=== PATIENT | female | born 1985 | race Caucasian/White ===

== ENCOUNTER 2017-01-29 19:06 | Emergency (ER) | payer OTHER ==
--- NOTE | ~2017-01-29 | CT4 ---
[facility] A Service [facility] RADIOLOGY TEXT RESULTS PATIENT: KAJAL WHYTE LOCATION: SED : [birth year] UNIT #: [id number] AGE: [address]: Melodie oGldsmith MD SEX: F ORDER DR: [id number] [id number] E MR#: [id number] Acc #: [id number] NAME: KAJAL WHYTE : 1985 SEX: F STUDY DATE/TIME: 01/29/2017 19:35 UNIT: SED ROOM: STUDY DESCRIPTION: CT Abd and Pelv Wo Cont Attending Physician: Melodie Goldsmith M.D. Ordering Physician: Physician Non-Staff Primary Care Physician: Ritu Mcneal A.P.R.N. MEDICAL IMAGING REPORT This report is preliminary unless electronic signature is present. EXAM CT abdomen and pelvis without contrast HISTORY Left flank pain and nausea for [address] examination was performed with one or more of the following radiation dose reduction techniques: automatic exposure control, adjustment of mA and/or kV according to patient size, and iterative reconstruction. FINDINGS CT abdomen and pelvis was performed without contrast. CT ABDOMEN: The liver, gallbladder, spleen, pancreas, kidneys, and adrenal glands are unremarkable. No renal calculi. No hydronephrosis or perinephric stranding. No bowel dilatation. Normal caliber abdominal aorta. No ascites or adenopathy. CT PELVIS: No bladder calculi. No ascites. No inflammatory stranding. The uterus and adnexa are unremarkable. IMPRESSION 1. No acute findings in the abdomen or pelvis. 2. No urinary calculi or obstruction. 3. No bowel dilatation. [facility] A Service [facility] RADIOLOGY TEXT RESULTS PATIENT: KAJAL WHYTE LOCATION: SED : [birth year] UNIT #: [id number] AGE: [address]: Melodie Goldsmith MD SEX: F ORDER DR: Dictated by... Ulises Sanam Maldonado M.D. THIS IS AN ELECTRONICALLY VERIFIED REPORT Ulises Maldonado M.D. at 01/30/2017 9:04 PM THERESA/giovanni TD: 01/30/2017 11:34 JOB #: [id number] MEDICAL IMAGING REPORT Page 1 of 1
[~2017-01-29 19:06] MED LIST: ALBUTEROL17 G1 IH; ALBUTEROL17 GM INH; AMOXICILLIN PO; AMOXIL875 MG PO; ANSAID100 MG PO; AUGMENTIN875 M1 PO; BACTRIM DS TABL1 TA1 PO; BENZONATATE PO; BUSPAR PO; CATAFLAM50 MG PO; CIPRO PO; CIPRO250 MG PO; FLOMAX0.4 M1 PO; FLONASE16 GM; HYCODAN PO; IBUPROFEN PO; IBUPROFEN800 MG PO; LOMOTIL TABLET1 TAB PO; LORTAB 5/500 TA1 TA1 PO; MACRODANTIN PO; MOTRIN600 M1 PO; MOTRIN600 MG PO; NAPROSYN250 M1 PO; NAPROSYN500 MG PO; NASONEX17 GM; NEXPLANON68 MG SQ; NO MEDICATIONS; PEPCID PO; PERCOCET5/325 PO; PHENERGAN PO; PHENERGAN25 M1 PO; PHENERGAN25 MG; PHENERGAN25 MG PO; PREDNISONE5 M1; PRENATAL1 TA1 PO; PRILOSEC; PROMETHAZINE D118 ML; PROZAC PO; PYRIDIUM PO; PYRIDIUM100 MG PO; ROBAXIN 750750 M1 PO; ROBITUSSIN A-C-S1 ML PO; ROBITUSSIN15 MG/5 ML; RONDEX-DM SYRU118 ML PO; TESSALON200 MG PO; TYLENOL #3 PO; ULTRAM PO; VICODIN PO; VOLTAREN75 MG PO; ZOFRAN ODT4 MG PO; ZOFRAN PO; ZOFRANODT PO; [UNRECOGNIZED DRUG - OTHER]
[2017-01-29 19:19] LABS: URINE SOURCE CLEAN CATCH
[2017-01-29 19:21] LABS: URINE APPEARANCE CLEAR; URINE BILIRUBIN NEG (NEG); URINE BLOOD NEG (NEG); URINE COLOR YELLOW; URINE GLUCOSE NEG (NORM); URINE KETONE NEG (NEG); URINE LEUKOCYTE ESTERASE NEG (NEG); URINE NITRATE NEG (NEG); URINE PH 6.5 (5-8); URINE PROTEIN NEG (NEG)
[2017-01-29 19:22] LABS: MICRO INDICATED? NO
[2017-01-29 20:05] LABS: BASOPHIL# 0.1 X10e3 (0-0.3); BASOPHIL% 0.5 % (0-2.5); EOSINOPHIL# 0.1 X10e3 (0-0.7); HEMATOCRIT 37.1 % (35.0-45.0); HEMOGLOBIN 11.4 gm/dL (12.0-16.0); LYMPHOCYTE# 3.1 X10e3 (1.0-3.5); LYMPHOCYTE% 27.6 % (17.0-45.0); MEAN CELL VOLUME 61.9 FL (83-96); MEAN CORPUSCULAR HGB CONC 30.7 g/dL (30-36); MEAN PLATELET VOLUME 9.9 FL (6.5-11.5); MONOCYTE# 0.9 X10e3 (0-1.0); MONOCYTE% 7.9 % (3.0-12.0); PLATELET COUNT 301 X10e3 (140-420); RED BLOOD COUNT 5.99 X10e (3.90-5.30); RED CELL DISTRIBUTION WIDTH 15.1 % (11.0-15.5); WHITE BLOOD COUNT 11.2 X10e3 (4.0-10.5)
[2017-01-29 20:07] LABS: DIFF IND NO
[2017-01-29 20:27] LABS: BLOOD UREA NITROGEN 12 mg/dL (9-23); CALCIUM SERUM 9.1 mg/dL (8.4-10.2); CARBON DIOXIDE 29 mmol/L (22-31); CHLORIDE 106 mmol/L (100-111); CREATININE SERUM 0.5 mg/dL (0.6-1.4); GLOM FILT RATE Estimated ABOVE60 mL/min (>60); GLUCOSE FASTING 89 mg/dL (70-110); POTASSIUM 3.6 mmol/L (3.5-5.1); SODIUM 140 mmol/L (135-145)
== END 2017-01-29 21:09 | disposition home or self-care (01) ==
LOC: SED 19:06
PROVIDERS: Emergency Medicine
DX: R10.9 Unspecified abdominal pain (principal); J45.909 Unspecified asthma, uncomplicated; Z90.89 Acquired absence of other organs; Z79.899 Other long term (current) drug therapy
CPT/HCPCS: 36415; 74176; 80048; 81003; 84703; 85025; 96361; 96374; 96375; 99284; J1885; J2405

== ENCOUNTER 2017-02-14 10:00 | Emergency (ER) | payer OTHER ==
--- NOTE | ~2017-02-14 | CR181 ---
[facility] A Service of [facility] RADIOLOGY TEXT RESULTS PATIENT: KAJAL WHYTE LOCATION: [facility] : [birth year] UNIT #: [id number] AGE: [address]: Lela Green SEX: F ORDER DR: [id number] [facility] [place], [place] [address] [id number] E MR#: [id number] Acc #: [id number] NAME: KAJAL WHYTE : 1985 SEX: F STUDY DATE/TIME: 02/14/2017 12:05 UNIT: TX ROOM: STUDY DESCRIPTION: CR Lumbar Spine 2 or 3 Views Attending Physician: Lela Green Pa-C Ordering Physician: Lela Green Pa-C Primary Care Physician: Ritu Mcneal A.P.R.N. MEDICAL IMAGING REPORT This report is preliminary unless electronic signature is present EXAM Lumbar spine series, 02/14/2017 1205 hours CLINICAL HISTORY 31-year-old woman with a 3 day history of low back pain and numbness in right leg. No reported injury. COMPARISON 01/19/2015 FINDINGS AP, lateral, and cone lateral views of the lumbosacral junction were performed. There are5 nonrib-bearing lumbar-type vertebrae which are normally aligned. Vertebral body and disc heights are normal. Sacrum and sacroiliac joints are normal. IMPRESSION Normal lumbar spine series. No change from 01/19/2015. Dictated by... Gita Rinaldi M.D. THIS IS AN ELECTRONICALLY VERIFIED REPORT Gita Rinaldi M.D. at 02/15/2017 9:34 AM PEGGY/zaida TD: 02/14/2017 14:07 JOB #: [id number] MEDICAL IMAGING REPORT [facility] A Service of [facility] RADIOLOGY TEXT RESULTS PATIENT: KAJAL WHYTE LOCATION: [facility] : 87 UNIT #: [id number] AGE: [address]: Lela Green SEX: F ORDER DR: Page 1 of 1 COPY
[2017-02-14 09:42] LABS: URINE SOURCE CLEAN CATCH
[2017-02-14 09:50] LABS: URINE APPEARANCE CLEAR; URINE BILIRUBIN NEG (NEG); URINE BLOOD NEG (NEG); URINE COLOR YELLOW; URINE GLUCOSE NEG (NEG); URINE KETONE NEG (NEG); URINE LEUKOCYTE ESTERASE NEG (NEG); URINE NITRATE NEG (NEG); URINE PH 5.5 (5-8); URINE PROTEIN NEG (NEG); URINE UROBILINOGEN 0.2 MG/DL (NEG)
[2017-02-14 09:56] LABS: CULTURE INDICATED? NO
[2017-02-14 13:23] LABS: AMPHETAMINE NEG (NEG); BARBITURATES NEG (NEG); BENZODIAZEPINES NEG (NEG); COCAINE NEG (NEG); MARIJUANA NEG (NEG); OPIATES NEG (NEG); TRICYCLIC ANTIDEPRESSANTS POS (NEG); U METHADONE NEG (NEG)
== END 2017-02-14 14:40 | disposition home or self-care (01) ==
LOC: CFTX 10:00
PROVIDERS: Physician Assistant Medical
DX: M54.5 Low back pain (principal); J45.909 Unspecified asthma, uncomplicated; Z87.442 Personal history of urinary calculi; Z98.890 Other specified postprocedural states
CPT/HCPCS: 72100; 80307; 81003; 84703; 96372; 99283; J1885; J2360

== ENCOUNTER 2017-06-22 19:31 | Emergency (ER) | payer OTHER ==
[~2017-06-22] VITALS: Ht 162.6 cm; Wt 108.0 kg
== END 2017-06-22 22:42 | disposition home or self-care (01) ==
LOC: SED 19:31
DX: R20.0 Anesthesia of skin (principal); T39.8X5A Adverse effect of other nonopioid analgesics and antipyretics, not elsewhere classified, initial encounter; J45.909 Unspecified asthma, uncomplicated; F41.9 Anxiety disorder, unspecified; Z90.89 Acquired absence of other organs
CPT/HCPCS: 96372; 99284; J1100; J2060

== ENCOUNTER 2017-07-10 19:57 | Emergency (ER) | payer OTHER ==
[2017-07-10 22:01] LABS: URINE SOURCE CLEAN CATCH
[2017-07-10 22:06] LABS: URINE APPEARANCE CLEAR; URINE BILIRUBIN NEG (NEG); URINE BLOOD NEG (NEG); URINE COLOR YELLOW; URINE GLUCOSE NEG (NEG); URINE KETONE NEG (NEG); URINE LEUKOCYTE ESTERASE NEG (NEG); URINE NITRATE NEG (NEG); URINE PH 5.5 (5-8); URINE PROTEIN NEG (NEG); URINE SPECIFIC GRAVITY 1.021 (1.003-1.035)
[2017-07-10 22:54] LABS: BASOPHIL% 0.4 % (0-2.5); DIFF IND YES; EOSINOPHIL# 0.1 X10e3 (0-0.7); EOSINOPHIL% 0.7 % (0.0-7.0); HEMATOCRIT 34.9 % (35.0-45.0); LYMPHOCYTE# 3.2 X10e3 (1.0-3.5); LYMPHOCYTE% 26.9 % (17.0-45.0); MEAN CORPUSCULAR HEMOGLOBIN 19.6 PG (28-34); MEAN CORPUSCULAR HGB CONC 31.6 g/dL (30-36); MEAN PLATELET VOLUME 9.9 FL (6.5-11.5); MONOCYTE# 0.9 X10e3 (0-1.0); MONOCYTE% 7.6 % (3.0-12.0); NEUTROPHIL# 7.6 X10e3 (1.5-7.1); NEUTROPHIL% 64.4 % (40-75); PLATELET COUNT 259 X10e3 (140-420); RED BLOOD COUNT 5.63 X10e (3.90-5.30); RED CELL DISTRIBUTION WIDTH 15.5 % (11.0-15.5); WHITE BLOOD COUNT 11.8 X10e3 (4.0-10.5)
[2017-07-10 23:11] LABS: ANISOCYTOSIS SL; PLATELET ESTIMATE NORMAL (NORMAL)
[2017-07-10 23:12] LABS: RBC NORMAL YES
[2017-07-10 23:17] LABS: ALBUMIN SERUM 4.1 g/dL (3.5-5.0); BILIRUBIN, DIRECT 0.2 mg/dL (0.0-0.2); BILIRUBIN,INDIRECT 0.5 mg/dL (0.0-0.9); BILIRUBIN,TOTAL 0.7 mg/dL (0.2-2.0); CALCIUM SERUM 9.3 mg/dL (8.4-10.2); CREATININE SERUM 0.5 mg/dL (0.6-1.4); GLOM FILT RATE Estimated 130.8 mL/min (>60); POTASSIUM 3.4 mmol/L (3.5-5.1); PROTEIN TOTAL SERUM 6.9 g/dL (6.0-8.3)
== END 2017-07-10 23:50 | disposition home or self-care (01) ==
LOC: CED 19:57
PROVIDERS: Emergency Medicine
DX: M54.5 Low back pain (principal); F41.9 Anxiety disorder, unspecified; Z87.442 Personal history of urinary calculi
CPT/HCPCS: 36415; 80048; 80076; 81003; 82150; 83690; 84703; 85025; 96361; 96374; 96375; 99284; J1885; J2405